=== PATIENT | female | born 1975 | race Caucasian/White ===

== ENCOUNTER → 2025-02-08 11:22 | Outpatient (REF) | payer OTHER, SELFPAY | LOC: RAD 11:22 | PROVIDERS: ATTENDING PHYSICIAN Internal Medicine Gastroenterology | DX: R10.33 Periumbilical pain (principal); R14.0 Abdominal distension (gaseous) | CPT/HCPCS: 74177; Q9967 ==

== ENCOUNTER 2025-03-16 06:23 | Day surgery (SDC) | payer OTHER, SELFPAY | END 2025-03-16 13:31 | disposition home or self-care (01) | LOC: GI 06:23 | PROVIDERS: ATTENDING PHYSICIAN Internal Medicine Gastroenterology | DX: Z12.11 Encounter for screening for malignant neoplasm of colon (principal); K57.30 Diverticulosis of large intestine without perforation or abscess without bleeding; R12 Heartburn; K63.5 Polyp of colon; R09.A2 Foreign body sensation, throat; R09.89 Other specified symptoms and signs involving the circulatory and respiratory systems; Z98.84 Bariatric surgery status; Z86.0101 Personal history of adenomatous and serrated colon polyps | CPT/HCPCS: 45385; 45380; 43239; 88305 ==